=== PATIENT | male | born 1955 | race African-American/Black ===

== ENCOUNTER 2017-06-10 23:31 | Emergency (ER) | payer OTHER ==
[~2017-06-10] VITALS: Ht 188 cm; Wt 86.2 kg
--- NOTE | ~2017-06-10 | CT52 ---
[facility] A Service of [facility] RADIOLOGY TEXT RESULTS PATIENT: DESTINY COLVIN LOCATION: SED : 57 UNIT #: [id number] AGE: [address]: EARNEST VERMA SEX: M ORDER DR: [id number] [address] [address] [id number] E MR#: [id number] Acc #: [id number] NAME: DESTINY COLVIN. : 1955 SEX: M STUDY DATE/TIME: 06/11/2017 0:35 UNIT: SED ROOM: STUDY DESCRIPTION: CT Cervical Spine Wo Cont Attending Physician: Earnest Verma R.N. Ordering Physician: Earnest Verma R.N. Primary Care Physician: Fiordaliza Poe M.D. MEDICAL IMAGING REPORT This report is preliminary unless electronic signature is present. EXAM CT cervical spine without contrast HISTORY Neck pain for 1 week. No injury. Right upper extremity numbness. Shoulder pain. TECHNIQUE This CT exam was performed with one or more of the following radiation dose reduction techniques: automatic control, adjustment of mA and/or kV according to patient size, and iterative reconstruction. FINDINGS CT cervical spine without contrast demonstrates moderately severe degenerative disc space narrowing at C3-C4 and C6-C7. Moderate sized multilevel broad-based posterior marginal osteophytes from C3-C4 to C6-C7. Together with multilevel facet hypertrophy, this results in multilevel bony outlet foraminal narrowing, [id number] from C3-C4 to C5-C6 and severe at C6-C7 on the left. No fracture or subluxation. No abnormal sclerosis. Partly visualized left apical lung cyst measuring close to 6.5 cm. Multinodular, lobulated soft tissue density in the left neck base, closely approximating the inferior margin of the thyroid gland, could be an exophytic thyroid mass, measuring approximately 3 cm x 3.7 cm in AP and transverse dimensions and 3 cm in craniocaudal dimension. Consider further evaluation with thyroid ultrasound when clinically appropriate. IMPRESSION 1. No fracture. 2. No acute finding. 3. Multilevel degenerative and hypertrophic changes as detailed above. These include hypertrophic spurring at C6-C7 which results in severe left-sided bony outlet foraminal narrowing and mild right sided bony outlet foraminal narrowing at this level. [facility] A Service of [facility] RADIOLOGY TEXT RESULTS PATIENT: DESTINY COLVIN [place] [facility] [place] 57 [place]IT #: [id number] AGE: [address]: EARNEST VERMA SEX: M ORDER DR: 4. Lobulated soft tissue density in the neck base extending to the upper mediastinum, closely approximating the inferior thyroid gland could be a multilobulated exophytic thyroid nodule. Consider further evaluation with thyroid ultrasound when clinically appropriate. This measures close to 3.7 cm in maximal dimension. 5. Partly visualized left apical lung cyst measuring close to 6.5 cm. Dictated by... Jonathan Kelly M.D. THIS IS AN ELECTRONICALLY VERIFIED REPORT Jonathan Kelly M.D. at 06/12/2017 6:29 AM DFL/yg TD: 06/12/2017 03:13 JOB #: [id number] MEDICAL IMAGING REPORT Page 1 of 1
--- NOTE | ~2017-06-10 | CT71 ---
[facility] A Service [facility] RADIOLOGY TEXT RESULTS PATIENT: DESTINY COLVIN LOCATION: SED : 57 UNIT #: [id number] AGE: [address]: EARNEST VERMA SEX: M ORDER DR: [id number] [address] [address] [id number] E MR#: [id number] Acc #: [id number] NAME: DESTINY COLVIN. : 1955 SEX: M STUDY DATE/TIME: 06/11/2017 0:35 UNIT: SED ROOM: STUDY DESCRIPTION: CT Head Wo Contrast Attending Physician: Earnest Verma R.N. Ordering Physician: Earnest Verma R.N. Primary Care Physician: Linda Poe MEDICAL IMAGING REPORT This report is preliminary unless electronic signature is present. EXAM CT brain without contrast HISTORY Headache for 1 week. No injury. TECHNIQUE This CT exam was performed with one or more of the following radiation dose reduction techniques: automatic control, adjustment of mA and/or kV according to patient size, and iterative reconstruction. FINDINGS Axial noncontrast images were obtained from the skull base to the vertex. Ventricular size and configuration are normal. There is no evidence of acute infarct or hemorrhage. There are no extraaxial fluid collections. No mass lesion or mass effect is seen. There are no skull fractures. IMPRESSION Normal noncontrast head CT. Dictated by... Jonathan Kelly M.D. THIS IS AN ELECTRONICALLY VERIFIED REPORT Jonathan Kelly M.D. at 06/12/2017 6:29 AM DFL/rnr TD: 06/12/2017 02:30 [facility] A [facility] RADIOLOGY TEXT RESULTS PATIENT: DESTINY COLVIN LOCATION: SED : 57 UNIT #: [id number] AGE: [address]: EARNEST VERMA SEX: M ORDER DR: MARJORIE #: [id number] MEDICAL IMAGING REPORT Page 1 of 1
[~2017-06-10 23:31] MED LIST: ALEVE; ARTANE PO; ARTANE2 M1 PO; ARTANE2 MG PO; FLEXERIL10 MG PO; FLUPHENAZINE HCL5 MG PO; HCTZ PO; IBUPROFEN PO; KEFLEX PO; LISINOPRIL PO; LISINOPRIL10 MG PO; MEDROL DOSEPAK4 MG PO; NORVASC PO; NORVASC10 MG PO; PERCOCET5/325 PO; PROLIXIN10 MG PO; RONDEC-DM ORAL30 ML PO
== END 2017-06-11 01:58 | disposition home or self-care (01) ==
LOC: SED 23:31
DX: M54.12 Radiculopathy, cervical region (principal); E04.1 Nontoxic single thyroid nodule; I10 Essential (primary) hypertension; F20.9 Schizophrenia, unspecified; F17.210 Nicotine dependence, cigarettes, uncomplicated; Z79.899 Other long term (current) drug therapy; Z88.0 Allergy status to penicillin; Z88.8 Allergy status to other drugs, medicaments and biological substances
CPT/HCPCS: 70450; 72125; 99283